=== PATIENT | female | born 1985 | race Two or more races ===

== ENCOUNTER 2023-11-30 07:11 | Emergency (ER) | payer BC, OTHER ==
[~2023-11-30] VITALS: Ht 152.4 cm; Wt 90.7 kg
[2023-11-30 07:23] VITALS: O2SAT 97
[2023-11-30] MEDS ORDERED: AZIT250T PO (07:45)
== END 2023-11-30 08:24 | disposition home or self-care (01) ==
LOC: ER 07:11
DX: J40 Bronchitis, not specified as acute or chronic (principal); E11.9 Type 2 diabetes mellitus without complications; Z20.822 Contact with and (suspected) exposure to COVID-19; Z79.899 Other long term (current) drug therapy; Z88.0 Allergy status to penicillin
CPT/HCPCS: 71045; A4606; A4663

== ENCOUNTER 2023-12-17 05:13 | Emergency (ER) | payer BC, OTHER ==
[~2023-12-17] VITALS: Ht 152.4 cm; Wt 108.9 kg
[~2023-12-17 05:13] MED LIST: AZIT250T PO
[2023-12-17] MEDS ORDERED: FAMOTIDINE. 20 MG/2 ML VIAL IV ONE ×2 (05:45→05:48)
[2023-12-17] MEDS ORDERED: IV NORMAL SALINE 1000 ML BAG IV ONE (05:45)
[2023-12-17] MEDS ORDERED: METOCLOPRAMIDE HCL 10 MG/2 ML VIAL IV ONE (05:45)
[2023-12-17] MEDS ORDERED: KETOROLAC TROMETHAMINE 30 MG INJ IVP ONE (05:45)
[2023-12-17] MEDS ORDERED: KETOROLAC TROMETHAMINE 30 MG INJ ONE (05:47)
[2023-12-17] MEDS ORDERED: METOCLOPRAMIDE HCL 10 MG/2 ML VIAL ONE (05:48)
[2023-12-17 05:55] LABS: BASOPHILS # (AUTO) 0.1 K/UL (0.0-0.2); BASOPHILS % (AUTO) 0.9 % (0.0-2.0); EOSINOPHILS # (AUTO) 0.2 K/uL (0.0-0.7); EOSINOPHILS % (AUTO) 2.3 % (0.0-7.0); HEMATOCRIT 40.6 % (31.2-41.9); HEMOGLOBIN 13.5 g/dL (10.9-14.3); LYMPHOCYTES # (AUTO) 1.5 K/uL (0.8-4.8); MEAN CORPUSCULAR HEMOGLOBIN 25.8 uug (24.7-32.8); MEAN CORPUSCULAR HGB CONC 33 g/dL (32.3-35.6); MEAN CORPUSCULAR VOLUME 77.4 fL (75.5-95.3); MONOCYTES # (AUTO) 0.2 K/uL (0.1-1.30); MONOCYTES % (AUTO) 3.4 % (0.0-11.0); NEUTROPHILS # (AUTO) 4.8 K/uL (1.8-8.9); NEUTROPHILS % (AUTO) 71.4 % (38.5-71.5); PLATELET COUNT (AUTO) 272 K/uL (179-408); RED BLOOD CELL COUNT(AUTO) 5.24 MIL/uL (3.63-4.92); RED CELL DISTRIBUTION WIDTH 15.5 % (12.3-17.7); WHITE BLOOD COUNT (AUTO) 6.7 K/uL (3.8-11.8)
[2023-12-17 06:04] LABS: DIFFERENTIAL COMMENT 1
[2023-12-17 06:07] LABS: CALCIUM 9.1 mg/dL (8.5-10.1); CREATININE 0.7 mg/dL (0.6-1.3); POTASSIUM 3.7 mmol/L (3.5-5.1)
[2023-12-17 06:25] LABS: BILIRUBIN,DIRECT 0.2 mg/dL (0.0-0.2); BILIRUBIN,TOTAL 0.7 mg/dL (0.2-1.0); TOTAL PROTEIN, SERUM 8.2 g/dL (6.4-8.2)
[2023-12-17 10:24] VITALS: BP 130/80; TEMP 98; O2SAT 99
== END 2023-12-17 10:25 | disposition home or self-care (01) ==
LOC: ER 05:15
DX: R51.9 Headache, unspecified (principal); R11.2 Nausea with vomiting, unspecified; E11.9 Type 2 diabetes mellitus without complications; Z79.899 Other long term (current) drug therapy; Z88.0 Allergy status to penicillin
CPT/HCPCS: 99285; 96374; 70450; 96361; 96375; 80076; 80048; 83690; 85025; 85730; 36415; J3490; J1885; J2765; A4606; A4663